=== PATIENT | female | born 1990 | race Caucasian/White ===

== ENCOUNTER 2022-03-24 15:17 | Emergency (ER) | payer BC ==
[~2022-03-24] VITALS: Ht 157.5 cm; Wt 37.0 kg
[2022-03-24 15:25] VITALS: BP 147/80
[2022-03-24] MEDS ORDERED: ACETAMINOPHEN 500MG TABLET PO STA (20:35)
[2022-03-24] MEDS ORDERED: ONDANSETRON HCL 4MG/2ML INJ IV STA (20:35)
[2022-03-24] MEDS ORDERED: SODIUM CHLORIDE 0.9% 1,000 ML IV ONE (20:45)
[2022-03-24 21:13] LABS: BASOPHILS % 0.1 % (0.0-2.0); HEMATOCRIT. 40.1 % (36.0-48.0); HEMOGLOBIN. 13.1 g/dL (12.0-16.0); LYMPHOCYTES % 15.1 % (20.0-50.0); MEAN CORPUSCULAR HEMOGLOBIN 29.3 pg (28.0-32.0); MEAN CORPUSCULAR VOLUME 89.5 fL (81.0-99.0); MEAN PLATELET VOLUME 8.7 fl (7.4-10.4); MONOCYTES % 5.3 % (2.0-8.0); NEUTROPHILS % 79.5 % (40.0-76.0); PLATELET 249 x1000/uL (130-400); RED BLOOD CELL COUNT 4.47 mill/uL (4.2-5.4); RED CELL DISTRIBUTION WIDTH 13.4 % (11.6-14.6)
[2022-03-24 21:23] LABS: CHLORIDE 104 mEq/L (98-107)
[2022-03-24 21:32] LABS: HCG SCREEN NEGATIVE
[2022-03-24] MEDS ORDERED: IOHEXOL-300 100 ML BOTTLE ONE (22:12)
[2022-03-24 22:58] LABS: CLARITY URINE CLEAR (CLEAR); COLOR URINE YELLOW (YELLOW); KETONES URINE 3+ (NEGATIVE); LEUKOCYTE ESTERASE URINE TRACE (NEGATIVE); NITRITE URINE NEGATIVE (NEGATIVE); OCCULT BLOOD URINE NEGATIVE (NEGATIVE); PROTEIN URINE NEGATIVE (NEGATIVE); SPECIFIC GRAVITY URINE 1.021 (1.005-1.030)
[2022-03-24] MEDS ORDERED: ONDA4TAB50 MT (23:27)
[2022-03-24] MEDS ORDERED: ACET-2708 MT (23:27)
== END 2022-03-25 00:32 | disposition home or self-care (01) ==
LOC: ER 15:17
DX: R10.9 Unspecified abdominal pain (principal); M25.511 Pain in right shoulder; R03.0 Elevated blood-pressure reading, without diagnosis of hypertension; V43.52XA Car driver injured in collision with other type car in traffic accident, initial encounter; Y93.89 Activity, other specified; Y92.410 Unspecified street and highway as the place of occurrence of the external cause
CPT/HCPCS: 36415; 71045; 73030; 74177; 80053; 81003; 83690; 84703; 85025; 86850; 86900; 86901; 93005; 96361; 96374; 99285; J2405; J7030; Q9967; Z7610